=== PATIENT | female | born 2005 | race Two or more races ===

== ENCOUNTER 2025-02-14 17:00 | Outpatient (RCR) | payer BC, SELFPAY | END 2025-02-14 23:59 | disposition home or self-care (01) | LOC: PT 17:00 | DX: M54.31 Sciatica, right side (principal); M54.50 Low back pain, unspecified | CPT/HCPCS: 97014; 97110; 97162; 97530; G0283 ==

== ENCOUNTER 2025-02-22 17:44 | Outpatient (CLI) | payer BC, SELFPAY ==
--- NOTE | 2025-02-22 | XR_ITS ---
PROCEDURE INFORMATION: Exam: XR Right Hip Exam date and time: 02/22/2025 5:47 PM Age: 19 years old Clinical indication: Hip pain; Right hip; Pain down leg TECHNIQUE: Imaging protocol: Radiologic exam of the right hip. Views: 2 or 3 views hip with pelvis when performed. COMPARISON: CR XR HIP RT 2-3V W/PELVIS 02/22/2025 5:47 PM FINDINGS: Bones/joints: No acute displaced fracture or dislocation. Joint spaces are preserved. Soft tissues: Unremarkable. IMPRESSION: No acute findings.
--- NOTE | 2025-02-22 | XR_ITS ---
PROCEDURE INFORMATION: Exam: XR Lumbosacral Spine Exam date and time: 02/22/2025 5:50 PM Age: 19 years old Clinical indication: Low back pain; Pain down leg TECHNIQUE: Imaging protocol: Radiologic exam of the lumbosacral spine. Views: 2 or 3 views. COMPARISON: CR Hip R 02/22/2025 5:47 PM FINDINGS: Bones/joints: Normal lumbar lordosis. Vertebral body heights are maintained. No acute displaced fracture. Posterior elements are aligned. No acute traumatic subluxation. Disc spaces are grossly preserved. Soft tissues: Unremarkable. IMPRESSION: No acute findings.
== END 2025-02-22 23:59 | disposition home or self-care (01) ==
LOC: RAD 17:47
DX: M25.551 Pain in right hip (principal); M54.50 Low back pain, unspecified
CPT/HCPCS: 72100; 73502

== ENCOUNTER 2025-03-01 16:07 | Outpatient (CLI) | payer BC, SELFPAY ==
--- NOTE | 2025-03-01 16:11 | MR_ITS ---
PROCEDURE INFORMATION: Exam: MR Lumbar Spine Without Contrast Exam date and time: 03/01/2025 4:13 PM Age: 19 years old Clinical indication: Low back pain; Right leg pian x few months , pain started after picking up something heavy at work; Additional info: Sciatica of RT side/low back pain TECHNIQUE: Imaging protocol: Magnetic resonance imaging of the lumbar spine without contrast. COMPARISON: CR Lumbar spine 02/22/2025 5:50 PM FINDINGS: Bones/joints: Minimal retrolisthesis of L4 on L5 and L5 on S1. The alignment is otherwise maintained. The vertebral body heights are maintained. No evidence of acute fractures. Spinal cord: Visualized cord, conus medullaris and cauda equina are unremarkable without compression. The conus medullaris terminates at the level of L1 L1-L2: Minimal disc bulge. No large disc herniation. No severe spinal canal stenosis. No significant neural foraminal narrowing. L2-L3: No significant disc bulge or herniation. No severe spinal canal stenosis. No significant neural foraminal narrowing. L3-L4: No significant disc bulge or herniation. No severe spinal canal stenosis. No significant neural foraminal narrowing. L4-L5: There is decreased disc space height and disc desiccation. There is a small central disc protrusion resulting in indentation on the ventral aspect of the thecal sac. Minimal hypertrophy of the ligamentum flavum. No severe spinal canal stenosis. There is minimal facet arthropathy. No significant neural foraminal narrowing. L5-S1: There is decreased disc space height and disc desiccation. There is a large central disc protrusion resulting in severe compression on the thecal sac and moderate-severe spinal canal stenosis. There is mild compression on the right more than left lateral recesses. Minimal neural foraminal narrowing. No severe neural foraminal narrowing. Soft tissues: Unremarkable. IMPRESSION: 1. Large central disc herniation at L5-S1, resulting in moderate to severe spinal canal stenosis, as outlined. 2. Additional [id number] analysis as detailed above.
== END 2025-03-01 23:59 | disposition home or self-care (01) ==
LOC: RAD 16:08
DX: M51.17 Intervertebral disc disorders with radiculopathy, lumbosacral region (principal); M48.07 Spinal stenosis, lumbosacral region
CPT/HCPCS: 72148